=== PATIENT | female | born 1995 | race Asian ===

== ENCOUNTER 2025-06-16 04:06 | Inpatient (IN) | payer BC, OTHER ==
[2025-06-16] MEDS ORDERED: Acetaminophen 500 MG TAB ONE (04:55)
[2025-06-16] MEDS ORDERED: Ondansetron PF 4 MG/2 ML Vial ONE (05:14)
[2025-06-16 06:05] LABS: #Basophils 0.03 10x3/uL (0.0-0.2); #Eosinophils 0.03 10x3/uL (0.0-0.7); #Monocytes 0.13 10x3/uL (0.11-0.59); #Neutrophils 3.36 10x3/uL (1.40-6.50); %Basophils 0.6 % (0.0-1.0); %Eosinophils 0.6 % (0.0-10.0); %Lymphocytes 23.1 % (21.0-51.0); %Monocytes 2.8 % (0.0-10.0); %Neutrophils 72.7 % (42.0-75.0); Hematocrit 36.7 % (36.0-47.0); Hemoglobin 11.7 g/dL (12.0-16.0); Mean Corpuscular Hemoglobin 29.3 pg (27.0-31.0); Mean Corpuscular Volume 92.0 fL (78.0-98.0); Platelet Count 305 10x3/uL (130-400); Red Blood Cell (RBC) Count 3.99 mill/uL (4.20-5.40); White Blood Cell (WBC) Count 4.63 10x3/uL (4.8-10.8)
[2025-06-16 06:08] LABS: Bacteria/HPF None Seen HPF (None Seen); CAUTI Indications for Culture Pelvic or flank pain; Glucose, Urine (Dipstick) Normal (Negative); Leukocyte Negative Leu/uL (Negative); Protein, Urine (Dipstick) Negative (Neg-Trace); RBC/HPF 0-3 HPF (0-3); Specific Gravity, Urine 1.025 (1.002-1.036); WBC/HPF 0-3 HPF (0-3)
[2025-06-16 06:16] LABS: Cocaine Metabolite Screen Negative (Negative); THC/Cannabinoid Screen Negative (Negative); Tricyclic Screen Negative (Negative)
[2025-06-16 06:18] LABS: ALT (SGPT) 10 U/L (Less than 34); AST (SGOT) 25 U/L (11-34); Albumin 4.7 g/dL (3.1-4.5); Alkaline Phosphatase 61 U/L (40-110); Anion Gap 14 mmol/L (10-20); BUN (Urea Nitrogen) 8 mg/dL (7.0-18.7); Bilirubin, Total 0.2 mg/dL (0.3-1.2); Calc. Creatinine Clearance 0 mL/min (70-130); Calcium 8.0 mg/dL (7.8-10.44); Carbon Dioxide 20 mmol/L (22-29); Chloride 113 mmol/L (98-107); Globulin 3.2 g/dL (2.4-3.5); Glucose 102 mg/dL (70-105); Lipase 50 U/L (8-78); Potassium 3.6 mmol/L (3.5-5.1); Sodium 143 mmol/L (136-145)
[2025-06-16] MEDS ORDERED: Ketorolac Tromethamine 30 MG (1 mL) VIAL ONE (06:21)
[2025-06-16 06:29] LABS: Urine Culture Reflex No No
[2025-06-16 06:32] LABS: INR-International Normal Ratio 1.0; PTT 27.2 sec (22.9-36.1); Prothrombin Time 13.2 sec (12.0-14.7)
[2025-06-16] MEDS ORDERED: Dextrose 50% Abboject 50 ML SYRINGE SLOW IVP PRN (07:04)
[2025-06-16] MEDS ORDERED: Glucagon 1 MG/ML KIT IM PRN (07:04)
[2025-06-16] MEDS ORDERED: Methocarbamol 500 MG TAB PO PRN (07:04)
[2025-06-16] MEDS ORDERED: hydrALAZINE 20 MG/ML VIAL SLOW IVP PRN (07:04)
[2025-06-16] MEDS ORDERED: Iopamidol 370 76% 100 ML VIAL ONE (11:13)
[2025-06-16 11:15] VITALS: BMI 21.2
[2025-06-16] MEDS: Senokot S 8.6-50 MG TAB PO SCH (11:26)
[2025-06-16] MEDS: Acetaminophen 325 MG TAB PO PRN (17:49)
[2025-06-16] MEDS: Ondansetron PF 4 MG/2 ML Vial IVP PRN (17:55)
[2025-06-17 05:53] LABS: #Basophils Less than 0.03 10x3/uL (0.0-0.2); #Eosinophils 0.14 10x3/uL (0.0-0.7); #Monocytes 0.50 10x3/uL (0.11-0.59); #Neutrophils 3.49 10x3/uL (1.40-6.50); %Basophils 0.3 % (0.0-1.0); %Eosinophils 2.1 % (0.0-10.0); %Lymphocytes 36.3 % (21.0-51.0); %Monocytes 7.7 % (0.0-10.0); %Neutrophils 53.4 % (42.0-75.0); Hematocrit 30.0 % (36.0-47.0); Hemoglobin 9.6 g/dL (12.0-16.0); Mean Corpuscular Hemoglobin 29.3 pg (27.0-31.0); Mean Corpuscular Volume 91.5 fL (78.0-98.0); Platelet Count 234 10x3/uL (130-400); Red Blood Cell (RBC) Count 3.28 mill/uL (4.20-5.40); White Blood Cell (WBC) Count 6.53 10x3/uL (4.8-10.8)
[2025-06-17 06:02] LABS: Anion Gap 11 mmol/L (10-20); BUN (Urea Nitrogen) 8 mg/dL (7.0-18.7); Calc. Creatinine Clearance 129 mL/min (70-130); Calcium 8.0 mg/dL (7.8-10.44); Carbon Dioxide 21 mmol/L (22-29); Chloride 108 mmol/L (98-107); Glucose 85 mg/dL (70-105); Potassium 3.4 mmol/L (3.5-5.1); Sodium 137 mmol/L (136-145)
[2025-06-17] MEDS ORDERED: Lidocaine 1% PF 5 ML VIAL ONE (10:30)
[2025-06-17] MEDS ORDERED: fentaNYL PF 100 MCG/2 ML SYRINGE ONE (10:30)
[2025-06-17 10:38] LABS: Pregnancy Test - Urine (BHCG) Negative (Negative); Pregu Control Background? CLEAR/WHITE (CLR/WHITE); Pregu Control Bar Appear? YES (CONTROL BAR)
[2025-06-17] MEDS ORDERED: Ropivacaine 0.5% HCl/PF (150 MG/30 ML VIAL) ONE (10:49)
[2025-06-17] MEDS ORDERED: Ropivacaine 0.2% HCl/PF 20 ML ONE (10:49)
[2025-06-17] MEDS ORDERED: CEFAZOLIN 2 GM VIAL ONE (11:27)
[2025-06-17] MEDS ORDERED: PROPOFOL 200 MG/20 ML VIAL ONE (11:50)
[2025-06-17] MEDS ORDERED: Ondansetron PF 4 MG/2 ML Vial IVP PRN (12:00)
[2025-06-17] MEDS ORDERED: HYDROcodone/Acetaminophen 10/325 mg Tablet PO PRN ×2 (12:00)
[2025-06-17] MEDS ORDERED: Ropivacaine 0.2% 550 ML 550 ML NERVE BLCK SCH (12:00)
[2025-06-17] MEDS ORDERED: Ondansetron PF 4 MG/2 ML Vial ONE (12:01)
[2025-06-17] MEDS: Ketorolac Tromethamine 30 MG (1 mL) VIAL IVP SCH (14:19)
[2025-06-17 17:09] VITALS: BP 110/69; TEMP 98.2
== END 2025-06-17 19:35 | disposition home or self-care (01) | DRG 494 ==
LOC: ERS 04:06 → T4-B 07:04 → OBSVTOIN 11:16
PROVIDERS: ADMIT Surgery; ATTEND Surgery
PROC: 0PSG04Z Reposition Left Humeral Shaft with Internal Fixation Device, Open Approach (ICD-10-PCS; principal; 2025-06-17)
DX: S42.392A Other fracture of shaft of left humerus, initial encounter for closed fracture (principal); F17.210 Nicotine dependence, cigarettes, uncomplicated; F17.290 Nicotine dependence, other tobacco product, uncomplicated; F10.129 Alcohol abuse with intoxication, unspecified
CPT/HCPCS: 36415; 70450; 71260; 72125; 74177; 80048; 80053; 80306; 80307; 81001; 81025; 83690; 85025; 85610; 85730; 86850; 86900; 86901; 93005; 94760; 96374; 96375; A4306; C1713; G0390; J1100; J1885; J2250; J2270; J2272; J2405; J2704; J2795; J7120; Q9967